=== PATIENT | female | born 1965 ===

== ENCOUNTER 2024-02-15 09:01 | Inpatient (IN) | payer OTHER ==
[~2024-02-15] VITALS: Ht 160 cm; Wt 72.6 kg
[2024-02-15] MEDS ORDERED: JULUCA 50-25 M1 EACH PO (09:41)
[2024-02-15] MEDS ORDERED: PREZISTA800 MG PO (09:41)
[2024-02-15] MEDS ORDERED: CYMBALTA60 MG PO (09:41)
[2024-02-15] MEDS ORDERED: TIVICAY50 MG PO (09:41)
[2024-02-15] MEDS ORDERED: ZYPITAMAG2 MG PO (09:42)
[2024-02-15] MEDS ORDERED: SULFASALAZINE500 M1 PO (09:42)
[2024-02-15] MEDS ORDERED: RESTORIL30 MG PO (09:42)
[2024-02-15] MEDS ORDERED: TOPROL XL50 M1 PO (09:43)
[2024-02-15] MEDS ORDERED: MULTIPLE VITAM1 EAC2 PO (09:43)
[2024-02-15] MEDS ORDERED: ELIQUIS5 MG PO (09:43)
[2024-02-15] MEDS ORDERED: NORVASC5 MG PO (09:43)
[2024-02-19] MEDS ORDERED: CEFTRIAXONE SODIUM 2,000 MG VIAL IV NR (16:15)
[2024-02-19] MEDS ORDERED: LIDOCAINE HCL 1%/EPINEPHRINE 20ML VIAL IJ ONE (16:30)
[2024-02-19] MEDS ORDERED: METRONIDAZOLE/SODIUM CHLORIDE 500 MG/100 ML PIGGYBACK IV NR (16:30)
[2024-02-19] MEDS ORDERED: POVIDONE-IODINE 118 ML BOTT TOP NR (16:30)
[2024-02-19] MEDS ORDERED: BUPIVACAINE HCL 30 ML VIAL IJ ONE (16:30)
[2024-02-19] MEDS ORDERED: RINGERS SOLUTION,LACTATED 1,000 ML IV SCH (18:45)
[2024-02-19] MEDS ORDERED: MORPHINE SULFATE 4 MG/ML CARTRIDGE IV PRN (18:45)
[2024-02-19] MEDS ORDERED: ONDANSETRON HCL 2 MG/ML VIAL IV PRN (18:45)
[2024-02-19] MEDS ORDERED: OxyCODONE HCL 5 MG TABLET (ROXICODONE) PO PRN (18:45)
[2024-02-19] MEDS ORDERED: SUGAMMADEX SODIUM 200 MG/2 ML VIAL IV ONE (19:00)
[2024-02-19] MEDS ORDERED: TAMSULOSIN HCL 0.4 MG CAP PO SCH (21:00)
[2024-02-19] MEDS ORDERED: TEMAZEPAM 15 MG CAPSULE PO SCH (21:00)
[2024-02-19] MEDS ORDERED: FAMOTIDINE/PF 20 MG/2 ML VIAL IV PUSH SCH (21:00)
[2024-02-19] MEDS ORDERED: CIPROFLOXACIN IN 5 % DEXTROSE 400 MG/200 ML PIGGYBAG IV SCH (21:00)
[2024-02-20] MEDS ORDERED: ACETAMINOPHEN 500 MG GEL..CAP PO SCH
[2024-02-20] MEDS ORDERED: METRONIDAZOLE/SODIUM CHLORIDE 500 MG/100 ML PIGGYBACK IV SCH (01:00)
[2024-02-20] MEDS ORDERED: GABAPENTIN 300 MG CAPSULE PO SCH (01:00)
[2024-02-20 08:20] LABS: HEMATOCRIT 36.7 % (36.0-45.00); HEMOGLOBIN 12.4 g/dL (12.0-15.00); MEAN CELL VOLUME 98.2 fL (80.00-100.00); MEAN CORPUSCULAR HEMOGLOBIN 33.3 pg (27.00-32.0); MEAN CORPUSCULAR HGB CONC 33.9 g/dl (32.0-36.0); PLATELET COUNT 227 K/uL (150-450); RED BLOOD COUNT 3.74 M/uL (4.00-6.00); RED CELL DISTRIBUTION WIDTH 13.9 % (11.5-14.5)
[2024-02-20 08:51] LABS: ALBUMIN 2.8 gm/dL (3.4-5.0); CALCIUM 8.6 mg/dL (8.5-10.1); CREATININE SERUM 0.49 mg/dL (0.55-1.02); GFR 128.82; PHOSPHOROUS 2.7 mg/dL (2.5-4.9); POTASSIUM 3.02 mEq/L (3.5-5.1)
[2024-02-20 08:52] LABS: MAGNESIUM 1.4 mg/dL (1.8-2.4)
[2024-02-20] MEDS ORDERED: Duloxetine HCl 60 MG CAPSULE.DR PO SCH (09:00)
[2024-02-20] MEDS ORDERED: AMLODIPINE BESYLATE 10 MG TABLET PO SCH (09:00)
[2024-02-20] MEDS ORDERED: METOPROLOL SUCCINATE 50 MG TAB.SR.24H PO SCH (09:00)
[2024-02-20] MEDS ORDERED: HYOSCYAMINE SULFATE 0.125 MG TAB.SUBL SL SCH (09:00)
[2024-02-20] MEDS ORDERED: LACTOBACILLUS ACIDOPHILUS 1 CAP CAP PO SCH (09:00)
[2024-02-20] MEDS ORDERED: MAGNESIUM SULFATE IN WATER 50 ML IV NR (11:00)
[2024-02-20] MEDS ORDERED: POTASSIUM CHLORIDE 20MEQ/100ML H2O PB IV NR (11:00)
[2024-02-20] MEDS ORDERED: METOPROLOL SUCCINATE 25 MG TAB.SR.24H PO STA (13:02)
[2024-02-20] MEDS ORDERED: ENOXAPARIN SODIUM 40 MG/0.4 ML SYRINGE SUBCUTANEO SCH (17:00)
[2024-02-20 22:16] LABS: HEMATOCRIT 31.8 % (36.0-45.00); HEMOGLOBIN 11.1 g/dL (12.0-15.00); RED BLOOD COUNT 3.26 M/uL (4.00-6.00)
[2024-02-21] MEDS ORDERED: 0.9 % SODIUM CHLORIDE 1,000 ML IV SCH (04:00)
[2024-02-21] MEDS ORDERED: ENOXAPARIN SODIUM 40 MG/0.4 ML SYRINGE SUBCUTANEO SCH (09:00)
[2024-02-21 09:27] LABS: HEMATOCRIT 31.3 % (36.0-45.00); HEMOGLOBIN 10.7 g/dL (12.0-15.00); MEAN CELL VOLUME 99.1 fL (80.00-100.00); MEAN CORPUSCULAR HGB CONC 34.3 g/dl (32.0-36.0); PLATELET COUNT 166 K/uL (150-450); RED BLOOD COUNT 3.16 M/uL (4.00-6.00); RED CELL DISTRIBUTION WIDTH 13.9 % (11.5-14.5)
[2024-02-21 10:06] LABS: CALCIUM 8.4 mg/dL (8.5-10.1); CREATININE SERUM 0.52 mg/dL (0.55-1.02); GFR 120.28; MAGNESIUM 1.8 mg/dL (1.8-2.4); POTASSIUM 3.05 mEq/L (3.5-5.1); TSH 1.89 uIU/mL (0.358-3.74)
[2024-02-21 10:32] LABS: PHOSPHOROUS 1.7 mg/dL (2.5-4.9)
[2024-02-21] MEDS ORDERED: METOPROLOL SUCCINATE 25 MG TAB.SR.24H PO STA (10:36)
[2024-02-21] MEDS ORDERED: POTASSIUM PHOS,M-BASIC-D-BASIC 3 MM/ML VIAL IV NR (10:45)
[2024-02-21] MEDS ORDERED: POTASSIUM CHLORIDE 20MEQ/100ML H2O PB IV NR (10:45)
[2024-02-21] MEDS ORDERED: MAGNESIUM SULFATE/D5W 100 ML IV NR (10:45)
[2024-02-21] MEDS ORDERED: Cyanocobalamin/Mecobalamin 1 TAB.SL SL SCH (12:00)
[2024-02-21] MEDS ORDERED: SOD FERRIC GLUC COMPLX/SUCROSE 62.5 MG in 0.9 % SODIUM CHLORIDE 50 ML IV SCH (12:00)
[2024-02-22 08:03] LABS: HEMATOCRIT 28.4 % (36.0-45.00); HEMOGLOBIN 9.9 g/dL (12.0-15.00); MEAN CELL VOLUME 98.5 fL (80.00-100.00); MEAN CORPUSCULAR HEMOGLOBIN 34.2 pg (27.00-32.0); MEAN CORPUSCULAR HGB CONC 34.7 g/dl (32.0-36.0); PLATELET COUNT 144 K/uL (150-450); RED BLOOD COUNT 2.88 M/uL (4.00-6.00); RED CELL DISTRIBUTION WIDTH 13.8 % (11.5-14.5)
[2024-02-22 08:52] LABS: CALCIUM 7.7 mg/dL (8.5-10.1); CREATININE SERUM 0.39 mg/dL (0.55-1.02); GFR 167.64; MAGNESIUM 1.8 mg/dL (1.8-2.4)
[2024-02-22 09:08] LABS: POTASSIUM 2.89 mEq/L (3.5-5.1)
[2024-02-22 09:09] LABS: PHOSPHOROUS 1.5 mg/dL (2.5-4.9)
[2024-02-22] MEDS ORDERED: POTASSIUM PHOS,M-BASIC-D-BASIC 3 MM/ML VIAL IV NR (10:16)
[2024-02-23] MEDS ORDERED: POLYETHYLENE GLYCOL 3350 17 GM BLIST.PACK PO SCH (12:00)
[2024-02-23 14:31] LABS: CALCIUM 8.2 mg/dL (8.5-10.1); CREATININE SERUM 0.55 mg/dL (0.55-1.02); GFR 112.74; MAGNESIUM 1.6 mg/dL (1.8-2.4); POTASSIUM 3.28 mEq/L (3.5-5.1)
[2024-02-23 15:18] LABS: HEMATOCRIT 30.4 % (36.0-45.00); HEMOGLOBIN 10.5 g/dL (12.0-15.00); MEAN CELL VOLUME 98.8 fL (80.00-100.00); MEAN CORPUSCULAR HEMOGLOBIN 34.1 pg (27.00-32.0); MEAN CORPUSCULAR HGB CONC 34.5 g/dl (32.0-36.0); PLATELET COUNT 192 K/uL (150-450); RED BLOOD COUNT 3.08 M/uL (4.00-6.00); RED CELL DISTRIBUTION WIDTH 13.9 % (11.5-14.5)
[2024-02-24] MEDS ORDERED: TYLENOL325 MG PO (09:36)
[2024-02-24] MEDS ORDERED: NEURONTIN300 MG PO (09:36)
[2024-02-24] MEDS ORDERED: MIRALAX17 GM PO (09:38)
[2024-02-24] MEDS ORDERED: LEVSIN0.125 MG PO (09:38)
[2024-02-24] MEDS ORDERED: INTESTINEX680 M1 PO (09:39)
== END 2024-02-24 14:50 | disposition home or self-care (01) | DRG 330 ==
LOC: SURH 02-19 06:33 → O/R 02-19 06:33 → SURH 02-19 11:30
PROVIDERS: Colon & Rectal Surgery; Internal Medicine Geriatric Medicine; ADMIT Surgery; ATTEND Surgery
PROC: 0DTN4ZZ Resection of Sigmoid Colon, Percutaneous Endoscopic Approach (ICD-10-PCS; principal; 2024-02-20)
PROC: 0DBP4ZZ Excision of Rectum, Percutaneous Endoscopic Approach (ICD-10-PCS; 2024-02-20)
PROC: 0WQF4ZZ Repair Abdominal Wall, Percutaneous Endoscopic Approach (ICD-10-PCS; 2024-02-20)
PROC: 0DNW4ZZ Release Peritoneum, Percutaneous Endoscopic Approach (ICD-10-PCS; 2024-02-20)
PROC: 0DBE4ZZ Excision of Large Intestine, Percutaneous Endoscopic Approach (ICD-10-PCS; 2024-02-20)
PROC: 0DB84ZZ Excision of Small Intestine, Percutaneous Endoscopic Approach (ICD-10-PCS; 2024-02-20)
PROC: 0DQ84ZZ Repair Small Intestine, Percutaneous Endoscopic Approach (ICD-10-PCS; 2024-02-20)
PROC: 0DJD8ZZ Inspection of Lower Intestinal Tract, Via Natural or Artificial Opening Endoscopic (ICD-10-PCS; 2024-02-20)
PROC: 4A12X4Z Monitoring of Cardiac Electrical Activity, External Approach (ICD-10-PCS; 2024-02-21)
DX: K57.20 Diverticulitis of large intestine with perforation and abscess without bleeding (principal); N32.1 Vesicointestinal fistula; Z93.3 Colostomy status; N73.6 Female pelvic peritoneal adhesions (postinfective); N99.4 Postprocedural pelvic peritoneal adhesions; I95.89 Other hypotension